=== PATIENT | female | born 1970 | race Caucasian/White ===

== ENCOUNTER 2019-12-10 16:38 | Emergency (ER) | payer OTHER ==
[~2019-12-10] VITALS: Ht 147.3 cm; Wt 80.3 kg
[2019-12-10 16:45] VITALS: BP 145/78
--- NOTE | 2019-12-10 17:00 | NUR ---
49/F TO ED WITH C/O RT EAR PAIN X THIS MORNING, PT REPORTS TAKING 600MG MOTRIN WITH NO RELIEF. DENIES INJURY OR TRAUMA. DENIES HEARING LOSS. DENIES DISCAHRGE/DRAINAGE. IN BED FOR MSE.
[2019-12-10 17:24] VITALS: BP 145/78
--- NOTE | 2019-12-10 17:25 | NUR ---
Patient discharged with v/s stable. Written and verbal after care instructions given and explained. Patient alert, oriented and verbalized understanding of instructions. Ambulatory with steady gait. All questions addressed prior to discharge. ID band removed. Patient advised to follow up with PMD. Rx of TRAMDAOL, ACETIC ACID, MOTRIN given. Patient educated on indication of medication including possible reaction and side effects. Opportunity to ask questions provided and answered.
== END 2019-12-10 17:25 | disposition home or self-care (01) ==
LOC: MED 16:38
DX: H60.92 Unspecified otitis externa, left ear (principal); I10 Essential (primary) hypertension
CPT/HCPCS: 99283